=== PATIENT | male | born 1980 | race American Indian/Alaskan Native ===

== ENCOUNTER 2020-03-30 17:56 | Emergency (ER) | payer SELFPAY ==
[2020-03-30] MEDS ORDERED: DIPHtheria,PERTUSSIS(ACELL),TETANUS VACCINE/PF 0.5 ML VIAL IM ONE ×2 (18:36→22:10)
[2020-03-30] MEDS ORDERED: NEOMY 3.5 MG/BACIT 400 UNITS/POLY B 5000 UNITS/GM OINT PACKET TP STA (18:39)
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
--- NOTE | 2020-03-30 19:14 | XRay Report ---
RIGHT HAND 3 VIEWS INDICATION / CLINICAL INFORMATION: 2nd and 3rd MCP/digit pain after fall. COMPARISON: None available. FINDINGS: Comminuted and angulated fracture of the base of the proximal phalanx of the fifth finger. The fractu re appears to extend into the articular surface of this proximal phalanx. No additional fractures. Signer Name: Aldo Myles MD Signed: 03/30/2020 7:09 PM Workstation Name: [id number]
[2020-03-30] MEDS ORDERED: HYDROGEN PEROXIDE 118 ML SOLUTION TP ONE (22:10)
[2020-03-30] MEDS ORDERED: NEOMY 3.5 MG/BACIT 400 UNITS/POLY B 5000 UNITS/GM OINT PACKET TP ONE (22:10)
[2020-03-31 00:04] VITALS: BP 122/82
== END 2020-03-30 23:49 | disposition home or self-care (01) ==
LOC: ED 17:56
DX: S62.616A Displaced fracture of proximal phalanx of right little finger, initial encounter for closed fracture (principal); Z79.899 Other long term (current) drug therapy; Z88.6 Allergy status to analgesic agent; Z98.890 Other specified postprocedural states; V19.2 Unspecified pedal cyclist injured in collision with other and unspecified motor vehicles in nontraffic accident; Y92.410 Unspecified street and highway as the place of occurrence of the external cause; Y93.89 Activity, other specified; Y99.8 Other external cause status
CPT/HCPCS: 73130; 90715; 99283; A6250